=== PATIENT | female | born 1970 | race Two or more races ===

== ENCOUNTER 2017-09-15 11:12 | Emergency (ER) | payer OTHER ==
[2017-09-15 11:16] VITALS: BMI 28.1
--- NOTE | 2017-09-15 11:55 | PDOC ---
History of Present Illness - General History Source: Patient Exam Limitations: Other - History of Present Illness Abdominal Pain Onset Location: reports: flank <AkiraIsabella - Last Filed: 09/15/17 14:42> <Naya Puente - Last Filed: 09/15/17 16:53> - General Chief Complaint: Pain, Acute Stated Complaint: LT SIDE PAIN Time Seen by Provider: 09/15/17 11:33 Past History - Past Medical History Other medical history: THROMBOCYTOPENIA. - Suicide/Smoking/Psychosocial Hx Smoking History: Never smoked Hx Alcohol Use: No Drug/Substance Use Hx: No Substance Use Type: None <Walnut GroveIsabella - Last Filed: 09/15/17 14:42> <Naya Puente - Last Filed: 09/15/17 16:53> - Past Medical History Allergies/Adverse Reactions: Allergies Allergy/AdvReac Type Severity Reaction Status Date / Time No Known Allergies Allergy Verified 09/15/17 11:14 Home Medications: Ambulatory Orders Anagrelide HCl 0.5 mg PO DAILY 09/15/17 Aspirin [Tu Chewable] 81 mg PO DAILY 09/15/17 Levothyroxine [Synthroid -] 200 mcg PO DAILY 09/15/17 Review of Systems - Review of Systems Constitutional: No: Chills, Fever ABD/GI: No: Constipated, Diarrhea, Nausea, Vomiting : Yes: Flank Pain. No: Burning, Dysuria, Hematuria <Isabella Champion - Last Filed: 09/15/17 14:42> *Physical Exam - Vital Signs Last Vital Signs Temp Pulse Resp BP Pulse Ox 97.6 F 89 18 119/71 100 09/15/17 11:13 09/15/17 11:13 09/15/17 11:13 09/15/17 11:13 09/15/17 11:13 - Physical Exam General Appearance: Yes: Appropriately Dressed, Mild Distress HEENT: positive: Normal Voice Neck: positive: Supple Respiratory/Chest: negative: Respiratory Distress Gastrointestinal/Abdominal: positive: Soft, Other (poorly localized) Musculoskeletal: negative: CVA Tenderness Integumentary: positive: Dry, Warm Neurologic: positive: Alert, Normal Mood/Affect <Isabella Champion - Last Filed: 09/15/17 14:42> - Vital Signs Last Vital Signs Temp Pulse Resp BP Pulse Ox 97.2 F L 82 14 118/72 99 09/15/17 15:23 09/15/17 15:23 09/15/17 15:23 09/15/17 15:23 09/15/17 15:23 <Naya Puente - Last Filed: 09/15/17 16:53> ED Treatment Course - LABORATORY CBC & Chemistry Diagram: 09/15/17 12:00 09/15/17 12:00 - RADIOLOGY Radiology Studies Ordered: Category Date Time Status ABDOMEN & PELVIS CT WITH CONTR [CT] Stat CT Scan 09/15/17 11:48 Ordered <Isabella Champion - Last Filed: 09/15/17 14:42> - LABORATORY CBC & Chemistry Diagram: 09/15/17 12:00 09/15/17 12:00 - ADDITIONAL ORDERS Additional order review: Laboratory Results 09/15/17 09/15/17 09/15/17 12:00 12:00 12:00 Sodium 140 Potassium 3.9 Chloride 106 Carbon Dioxide 30 Anion Gap 4 L BUN 10 Creatinine 0.7 Creat Clearance w eGFR > 60 Random Glucose 91 Calcium 8.6 Total Bilirubin 0.2 AST 14 L ALT 20 Alkaline Phosphatase 71 Total Protein 6.7 Albumin 3.4 Lipase 213 Serum , Qual Negative Urine Color Straw Urine Appearance Clear Urine pH 7.0 Urine Protein Negative Urine Glucose (UA) Negative Urine Ketones Negative Urine Blood Negative Urine Nitrite Negative Urine Bilirubin Negative Urine Urobilinogen Negative 09/15/17 12:00 RBC 4.21 MCV 95.1 MCHC 32.3 RDW 14.7 MPV 10.2 Neutrophils % 40.2 L Lymphocytes % 39.6 Monocytes % 9.8 Eosinophils % 9.5 H Basophils % 0.9 - Medications Given in the ED: ED Medications Discontinued Medications Generic Name Dose Route Start Last Admin Trade Name Freq PRN Reason Stop Dose Admin Ketorolac Tromethamine 30 mg 09/15/17 14:42 09/15/17 15:00 Toradol Injection - IVPUSH 09/15/17 14:43 30 mg ONCE ONE Administration <Naya Puente - Last Filed: 09/15/17 16:53> Medical Decision Making - Medical Decision Making 09/15/17 11:49 47-year-old female, history of fibromyalgia, hypothyroidism, on anagrelide for "thrombocytosis", here with severe left flank pain. Patient reports mostly constant left flank pain for several months. Describes pain as sharp and worse with movement. No nausea, vomiting, fever, chills, dysuria, hematuria, change in bowel movement or unexplained weight loss. States he was evaluated by her PMD who did basic blood work with no obvious diagnosis. States pain worsened 3 days ago. See exam L flank pain x months Worse now No or other associated symptoms Neg labs in PMD's office No imaging to date Appears uncomfortable in ED w/ poorly localized tenderness on exam Etiology unclear at this time -will gets labs and scan today 09/15/17 11:56 09/15/17 14:[address] a/p unremarkable. Pt appears well at this time. Will dc w/ pain control and have pt f/u with PMD 09/15/17 14:48 <Isabella Champion - Last Filed: 09/15/17 14:42> *DC/Admit/Observation/Transfer <Isabella Champion - Last Filed: 09/15/17 14:42> - Attestations Physician Attestion: I reviewed the case with the mid-level practitioner and agree with the mid- level practitioner's assessment, diagnosis and disposition. <Naya Puente - Last Filed: 09/15/17 16:53> Diagnosis at time of Disposition: Flank pain - Discharge Dispostion Disposition: HOME Condition at time of disposition: Good - Patient Instructions Printed Discharge Instructions: DI for Flank Pain Additional Instructions: La causa de garcia dolor no est mishel en day momento jannie laboratorios y tomograf a computarizada salas todos normales hoy Schwana 600-800 mg de medicamento sin receta de Motrin cada 6 horas segn sea necesario y charles un seguimiento con garcia PMD Print Language: JAPANESE
[2017-09-15 12:16] LABS: BASOPHIL 0.9 % (0-2.0); EOSINOPHIL 9.5 % (0-4.5); MCH 30.7 pg (25.7-33.7); MCHC 32.3 g/dl (32.0-36.0); MEAN CELL VOLUME 95.1 fl (80-96); MEAN PLT VOLUME 10.2 fl (7.5-11.1); NEUTROPHILS 40.2 % (42.8-82.8); PLATELET COUNT 305 K/MM3 (134-434); RDW 14.7 % (11.6-15.6); WHITE BLOOD COUNT 8.7 K/mm3 (4.0-10.0)
[2017-09-15 12:22] LABS: URINE APPEARANCE CLEAR; URINE BILIRUBIN NEGATIVE (NEGATIVE); URINE BLOOD NEGATIVE (NEGATIVE); URINE COLOR STRAW; URINE GLUCOSE (UA) NEGATIVE (NEGATIVE); URINE KETONE NEGATIVE (NEGATIVE); URINE NITRITE NEGATIVE (NEGATIVE); URINE PROTEIN NEGATIVE (NEGATIVE); URINE UROBILINOGEN NEGATIVE mg/dL (0.2-1.0)
[2017-09-15 12:37] LABS: ALBUMIN 3.4 g/dl (3.4-5.0); ANION GAP 4 (8-16); BILIRUBIN,TOTAL 0.2 mg/dL (0.2-1.0); CALCIUM 8.6 mg/dL (8.5-10.1); CO2 30 mmol/L (21-32); CREATININE 0.7 mg/dL (0.55-1.02); GLUCOSE,RANDOM 91 mg/dL (74-106); SGOT/AST 14 U/L (15-37); SGPT/ALT 20 U/L (12-78); TOT PROT 6.7 g/dl (6.4-8.2)
[2017-09-15 12:38] LABS: ALK PHOS 71 U/L (45-117)
[2017-09-15] MEDS ORDERED: KETOROLAC TROMETHAMINE 30 MG/1 ML VIAL IVPUSH ONE (14:42)
[2017-09-15] MEDS ORDERED: KETOROLAC TROMETHAMINE 30 MG/1 ML VIAL ONE (15:05)
[2017-09-15 15:26] VITALS: BP 118/72; PULSE 82; TEMP 97.2
[2017-09-15 17:13] LABS: URINE LEUK ESTERASE Negative (NEGATIVE)
== END 2017-09-15 15:26 | disposition home or self-care (01) ==
LOC: JER 11:12
PROC: 3E0333Z Introduction of Anti-inflammatory into Peripheral Vein, Percutaneous Approach (ICD-10-PCS; principal; 2017-09-15)
DX: R10.32 Left lower quadrant pain (principal); D47.3 Essential (hemorrhagic) thrombocythemia; E03.9 Hypothyroidism, unspecified; M79.7 Fibromyalgia
CPT/HCPCS: 36415; 74177-TC; 80053; 81003; 83690; 84703; 85025; 96374; 99282-25; Q9967

== ENCOUNTER 2018-09-15 13:29 | Emergency (ER) | payer OTHER ==
[2018-09-15 13:35] VITALS: TEMP 98.1; BMI 25.7
--- NOTE | 2018-09-15 13:44 | PDOC ---
History of Present Illness - General Chief Complaint: Headache Stated Complaint: LEFT SIDE HEAD PAIN Time Seen by Provider: 09/15/18 13:44 History Source: Patient Exam Limitations: No Limitations - History of Present Illness Initial Comments: 09/15/18 14:34 HPI, ROS and physical exam performed via phone customer contact sales associate - [id number] 48 year old female with PMH thrombocytopenia, hypothyroid presents to ED complaining of pressure in left head x3 months. She states she feels pain at that part of her head only when she presses on the area, she denies recent fall/ head injury/LOC, she describes the feeling as a "liquid moving around". She states the feeling became more frequent and that is what brought her into the Emergency Department. She denies alleviating factors, aggravated by palpation. She admits to numbness and tingling of her fingers x6-7 months. She admits to dizziness that is intermittent, brought on when she gets out of bed sometimes and sometimes when she is standing. She denies current dizziness at this time. She denies fever, chills, nausea, vomiting, diarrhea, abdominal pain, chest pain , shortness of breath, cough, weakness. Allergies - NKDA Past History - Past Medical History Allergies/Adverse Reactions: Allergies Allergy/AdvReac Type Severity Reaction Status Date / Time No Known Allergies Allergy Verified 09/15/18 13:32 Home Medications: Ambulatory Orders Anagrelide HCl 0.5 mg PO DAILY 09/15/17 Aspirin [Tu Chewable] 81 mg PO DAILY 09/15/17 Levothyroxine [Synthroid -] 200 mcg PO DAILY 09/15/17 - Suicide/Smoking/Psychosocial Hx Smoking History: Never smoked Hx Alcohol Use: No Drug/Substance Use Hx: No Substance Use Type: None Review of Systems - Review of Systems Able to Perform ROS?: Yes Comments:: 09/15/18 14:36 General: denies fever, chills, night sweats, generalized weakness. HEENT: denies sore throat, rhinorrhea, ear pain. Heart: denies chest pain, palpitations, syncope, lower extremity swelling, diaphoresis. Respiratory: denies shortness of breath, cough, sputum production, hemoptysis. Abdomen: denies abdominal pain, nausea, vomiting, diarrhea, constipation, blood in stool. : denies dysuria, increased urinary frequency, hematuria, urinary incontinence , flank pain. Back: denies back pain. Musculoskeletal: denies joint pain, muscle pain, joint swelling. Neurological: admits to numbness, headache, dizziness. denies weakness. Skin: denies rash, laceration, abrasion. *Physical Exam - Vital Signs Last Vital Signs Temp Pulse Resp BP Pulse Ox 98.1 F 87 18 111/79 100 09/15/18 13:33 09/15/18 13:33 09/15/18 13:33 09/15/18 13:33 09/15/18 13:33 - Physical Exam Comments: 09/15/18 14:39 Constitutional: Well-nourished, Well-developed, appearing stated age. HEENT: head is normocephalic, atraumatic. EOMI. PERRLA. no hematoma palpated to scalp. no swelling palpated to scalp. Neck: supple. Full ROM. Heart: regular rhythm. no murmurs, rubs or gallops. Lungs: clear to auscultation bilaterally. no crackles, rhonchi or wheezing. no stridor. Abdomen: soft, nontender. normal bowel sounds. no rebound, guarding, masses. Extremities: Peripheral pulses intact. No lower extremity edema. Neurological: Alert. Oriented x3. CN2-12 intact. 5/5 strength all extremities. Full sensation all extremities and bilateral face. Romberg negative. No ataxia. Gait normal. Psych: awake, alert, oriented x3. Follows commands. Answers questions appropriately. ED Treatment Course - LABORATORY CBC & Chemistry Diagram: 09/15/18 14:23 09/15/18 14:23 Medical Decision Making - Medical Decision Making 09/15/18 14:40 48 year old female with PMH thrombocytopenia and hypothyroidism presented to ED complaining of headache x3 months, numbness/tingling to hands/feet x6-7 months and intermittent dizziness. Completely neurologically intact. No hematoma or swelling palpated to head. Tylenol ordered for pain. IV fluids ordered for hydration. Initial Vital Signs Temp Pulse Resp BP Pulse Ox 98.1 F 87 18 111/79 100 09/15/18 13:33 09/15/18 13:33 09/15/18 13:33 09/15/18 13:33 09/15/18 13:33 Afebrile. No tachycardia. No tachypnea. Mild systolic hypotension. - No lightheadedness, no chest pain, no shortness of breath - IV fluids ordered No hypoxia on room air. Completely neurologically intact. No hx seizures. No indication for CT head at this time. Concern for thrombocytopenia. - Pending CBC. Concern for electrolyte abnormality. - Pending CMP. Concern for hypothyroidism. - Pending TSH. 09/15/18 15:01 CBC WBC 8.4 K/mm3 (4.0-10.0) 09/15/18 14:23 RBC 4.55 M/mm3 (3.60-5.2) 09/15/18 14:23 Hgb 13.7 GM/dL (10.7-15.3) 09/15/18 14: Hct 42.1 % (32.4-45.2) 09/15/18 14:23 MCV 92.4 fl (80-96) 09/15/18 14: MCH 30.1 pg (25.7-33.7) 09/15/18 14: MCHC 32.6 g/dl (32.0-36.0) 09/15/18 14:23 RDW 16.2 % (11.6-15.6) H 09/15/18 14:23 Plt Count 258 K/MM3 (134-434) 09/15/18 14: MPV 10.0 fl (7.5-11.1) 09/15/18 14:23 Absolute Neuts (auto) 3.1 K/mm3 (1.5-8.0) 09/15/18 14: Neutrophils % 36.4 % (42.8-82.8) L 09/15/18 14:23 Lymphocytes % 43.9 % (8-40) H 09/15/18 14:23 Monocytes % 9.4 % (3.8-10.2) 09/15/18 14: Eosinophils % 9.9 % (0-4.5) H 09/15/18 14: Basophils % 0.4 % (0-2.0) 09/15/18 14: Nucleated RBC % 0 % (0-0) 09/15/18 14:23 Normal platelet quantity. No leukocytosis. No anemia. 09/15/18 15:14 CMP Sodium 139 mmol/L (136-145) 09/15/18 14:23 Potassium 4.1 mmol/L (3.5-5.1) 09/15/18 14:23 Chloride 105 mmol/L (98-107) 09/15/18 14:23 Carbon Dioxide 28 mmol/L (21-32) 09/15/18 14:23 Anion Gap 5 MMOL/L (8-16) L 09/15/18 14:23 BUN 13 mg/dL (7-18) 09/15/18 14:23 Creatinine 0.6 mg/dL (0.55-1.3) 09/15/18 14:23 Creat Clearance w eGFR > 60 (>60) 09/15/18 14:23 Random Glucose 97 mg/dL (74-106) 09/15/18 14:23 Calcium 9.0 mg/dL (8.5-10.1) 09/15/18 14:23 Total Bilirubin 0.2 mg/dL (0.2-1) 09/15/18 14:23 AST 28 U/L (15-37) 09/15/18 14:23 ALT 35 U/L (13-61) 09/15/18 14:23 Alkaline Phosphatase 78 U/L (45-117) 09/15/18 14:23 Total Protein 6.7 g/dl (6.4-8.2) 09/15/18 14:23 Albumin 3.5 g/dl (3.4-5.0) 09/15/18 14:23 TSH 0.59 uIU/ml (0.358-3.74) 09/15/18 14:23 No electrolyte abnormalities. No acute kidney injury. No transaminitis. Normal TSH. No hyperglycemia. 09/15/18 15:17 Pt reassessed, sleeping comfortably. - Will continue to monitor. 09/15/18 15:34 Pt reassessed, states she is feeling better. I discussed the results with the patient with Cream.HR. She stated she understood and did not have any questions. I discussed the importance of following up with her primary care doctor, she stated she understood. I discussed the importance of following up with neurology, and that I would provide her with a referral. She stated she understood. Pt will be discharged. *DC/Admit/Observation/Transfer Diagnosis at time of Disposition: Headache - Discharge Dispostion Disposition: HOME Condition at time of disposition: Stable Decision to Admit order: No - Referrals Referrals: Kierra Coronado MD [Primary Care Provider] - Adam Lloyd MD [Staff Physician] - - Patient Instructions Additional Instructions: Your blood work was normal. Your platelets are not low. Your sugar was normal. Your electrolytes are normal. Your thyroid level is normal. I have provided you with a copy of the results. Follow up with your primary care doctor within 3 days. Call their office monday and make an appointment for as soon as available. Tell them you were seen in the Emergency Department. Your care is not complete until you follow up. Return to the Emergency Department for chest pain, shortness of breath, palpitations, vomiting, weakness of your arms or legs, increasing pain, increasing numbness or tingling, abnormal gait, feeling off-balance, or any other new, worsening or concerning symptoms. Garcia anlisis de nino era normal. Emelia plaquetas no son bajas. Tu azcar era normal. Emelia electrolitos son normales. Garcia nivel de tiroides es normal. Te he proporcionado jess copia de los resultados. Charles un seguimiento con garcia mdico de atencin primaria dentro de los 3 justice. Llame a garcia oficina el lunes y charles jess prasad estrada pronto ran est disponible. Diles que te vieron en el Departamento de Emergencias. Garcia atencin no est completa hasta que charles un seguimiento. Regrese al Departamento de Emergencias para el dolor en el pecho, dificultad para respirar, palpitaciones, vmitos, debilidad en los brazos o piernas, aumento del dolor, adormecimiento o hormigueo anormales, marcha anormal, sensacin de desequilibrio o cualquier otro sntoma nuevo, que empeore o se relacione con ellos. - Post Discharge Activity
[2018-09-15] MEDS ORDERED: ACETAMINOPHEN 1000 MG/100 ML VIAL (NON FORMULARY) IVPB ONE (14:20)
[2018-09-15] MEDS ORDERED: SODIUM CHLORIDE 1,000 ML IV STA (14:20)
[2018-09-15] MEDS ORDERED: ACETAMINOPHEN INJECTION 100 ML IVPB ONE (14:37)
[2018-09-15 14:43] LABS: BASO % 0.4 % (0-2.0); EOS % 9.9 % (0-4.5); HEMATOCRIT 42.1 % (32.4-45.2); HEMOGLOBIN 13.7 GM/dL (10.7-15.3); LYMPH % 43.9 % (8-40); MCH 30.1 pg (25.7-33.7); MCHC 32.6 g/dl (32.0-36.0); MEAN CELL VOLUME 92.4 fl (80-96); MONO % 9.4 % (3.8-10.2); NEUT % 36.4 % (42.8-82.8); PLATELET COUNT 258 K/MM3 (134-434); RBC 4.55 M/mm3 (3.60-5.2); RDW 16.2 % (11.6-15.6); WHITE BLOOD COUNT 8.4 K/mm3 (4.0-10.0)
--- NOTE | 2018-09-15 15:09 | PDOC ---
Attending Attestation - Resident Resident Name: Dorys García - ED Attending Attestation I have performed the following: I have examined & evaluated the patient, The case was reviewed & discussed with the resident, I agree w/resident's findings & plan - HPI HPI: 09/15/18 15:11 Vieira 48 YOF with h/o thrombocytopenia, hypothyroid presenting with occipital and left sided headache x 3 months, pressure-like and as if liquid moving around. No trauma, seizure or AMS. also paresthesias to fingers x 6 months. Intermittent dizziness, with movement and getting up to standing position, no vertigo or gait instability/falls. Patient has been unable to see her PCP for these symptoms. The patient denies chest pain and shortness of breath. Denies fever, chills, nausea, vomit, diarrhea and constipation. Denies dysuria, frequency, urgency and hematuria. Allergies: NKA Past surgical history: None reported. Social history: No reported alcohol drug or cigarette use. PCP: Dr. Francois 09/15/18 15:35 - Physicial Exam PE: 09/15/18 15:11 NAD, well appearing, MMM, nl conjunctiva, anicteric; neck supple, FROM, no tenderness in C spine.. no jvd, no carotid bruit. lungs clear, RRR, abdomen soft nontender. MIKE x4, no focal neuro deficits. SILT in all extrem. 5/5 prox and distal strength in all extrem. No peripheral edema. normal color for ethnicity, WWP.. 09/15/18 15:36 09/15/18 15:37 - Medical Decision Making 09/15/18 15:11 48 YOF with hypothyroid, thrombocytopenia presenting with headache x several months, +intermittent dizziness and tingling in b/l fingers. no trauma, seizure , AMS or falls. vitals wnl. well appearing interventions in the ED: tylenol, IVF no neuro deficits, ambulatory, well appearing labs and lytes wnl. no signs of infection. no indication for CT head, as doubt emergent pathology or mass or bleed or infarction without acute changes or neuro deficits. no neck pain or trauma. low suspicion for dissection or aneurysm or CVA PCP and neuro followup as outpatient. Pt to be discharged in stable condition. Patient and family made aware of impression and plan, return precautions discussed (including but not limited to worsening pain or symptoms), fevers, or signs of infection, chest pain, respiratory distress, inability to tolerate oral intake, dehydration, syncope, or neurologic changes). Follow up with PMD and/or specialist as recommended, follow up information provided, take medications as instructed for duration of time. continue with supportive care, avoid triggers and precipitants. All questions answered to patient's satisfaction and expressed understanding and comfort with this. 09/15/18 15:36
[2018-09-15 15:13] LABS: ALBUMIN 3.5 g/dl (3.4-5.0); ALK PHOS 78 U/L (45-117); ANION GAP 5 MMOL/L (8-16); BILIRUBIN,TOTAL 0.2 mg/dL (0.2-1); BLOOD UREA NITROGEN 13 mg/dL (7-18); CHLORIDE 105 mmol/L (98-107); CO2 28 mmol/L (21-32); CREATININE 0.6 mg/dL (0.55-1.3); GLUCOSE,RANDOM 97 mg/dL (74-106); POTASSIUM 4.1 mmol/L (3.5-5.1); SGOT/AST 28 U/L (15-37); SGPT/ALT 35 U/L (13-61); SODIUM 139 mmol/L (136-145); TOT PROT 6.7 g/dl (6.4-8.2)
[2018-09-15 15:40] VITALS: BP 93/57; PULSE 74
== END 2018-09-15 15:53 | disposition home or self-care (01) ==
LOC: JER 13:29
PROC: 3E033NZ Introduction of Analgesics, Hypnotics, Sedatives into Peripheral Vein, Percutaneous Approach (ICD-10-PCS; principal; 2018-09-15)
DX: R51 Headache (principal); D69.6 Thrombocytopenia, unspecified; E03.9 Hypothyroidism, unspecified
CPT/HCPCS: 36415; 80053; 84443; 85025; 96374; 99283-25; J0131; J7030